=== PATIENT | female | born 1990 | race African-American/Black ===

== ENCOUNTER 2018-06-26 13:47 | Emergency (ER) | payer MEDICAID, OTHER ==
[~2018-06-26] VITALS: Ht 175.3 cm; Wt 64.0 kg
[2018-06-26 14:39] VITALS: BP 128/84
[2018-06-26] MEDS ORDERED: IBUPROFEN 800MG TABLET PO ONE (14:45)
== END 2018-06-26 15:00 | disposition left against medical advice (07) ==
LOC: ER 13:47
DX: I88.9 Nonspecific lymphadenitis, unspecified (principal); Z98.890 Other specified postprocedural states
CPT/HCPCS: 99283